=== PATIENT | female | born 1985 | race Hispanic/Latino ===

== ENCOUNTER 2022-04-17 20:25 | Inpatient (IN) | payer MEDICAID, OTHER ==
[2022-04-17 22:01] VITALS: BMI 28.2
[2022-04-17] MEDS ORDERED: Ondansetron PF 4 MG/2 ML Vial IVP PRN (22:06)
[2022-04-17] MEDS ORDERED: Promethazine HCl 25 MG/ML VIAL IM PRN (22:06)
[2022-04-17] MEDS ORDERED: hydrALAZINE 20 MG/ML VIAL SLOW IVP PRN (22:06)
[2022-04-17] MEDS ORDERED: Acetaminophen 500 MG TAB PO PRN (22:06)
[2022-04-17] MEDS ORDERED: Lactated Ringer's 1,000 ML IV SCH (22:30)
[2022-04-17] MEDS ORDERED: Bicitra 30 ML UDCUP PO PRN (22:47)
[2022-04-17] MEDS ORDERED: Famotidine/PF 20 mg/2ml Vial SLOW IVP PRN (22:47)
[2022-04-17] MEDS ORDERED: CEFAZOLIN 2 GM VIAL ONE (22:53)
[2022-04-17] MEDS ORDERED: CEFAZOLIN 2 GM in Sodium Chloride 0.9% 100 ML IVPB SCH (23:00)
[2022-04-17 23:04] LABS: Glucose 85 mg/dL (70-105)
[2022-04-17] MEDS ORDERED: PHENYLEPHRINE-NS 100 MCG/ML 10 ML SYRINGE ONE (23:36)
[2022-04-17] MEDS ORDERED: Oxytocin 10 UNITS/ML VIAL ONE (23:36)
[2022-04-17] MEDS ORDERED: Morphine PF 10 MG/10 ML VIAL ONE (23:36)
[2022-04-17 23:48] LABS: HBSAg Index 0.17 S/CO (0-0.99); Hep B Surf Ag Non-Reactive S/CO (NonReactive)
[2022-04-17 23:49] LABS: Syphilis Antibody Nonreactive (Nonreactive); Syphilis Antibody Index 0.05 S/CO (<1.00 Non-Reactive)
[2022-04-18] MEDS ORDERED: Dexamethasone 4 mg/ml Vial ONE (00:08)
[2022-04-18] MEDS ORDERED: Ondansetron PF 4 MG/2 ML Vial ONE (00:08)
[2022-04-18] MEDS ORDERED: diphenhydrAMINE 50 MG/ML VIAL IVP PRN (00:55)
[2022-04-18] MEDS ORDERED: Fentanyl 100 MCG/2 ML VIAL SLOW IVP PRN (00:55)
[2022-04-18] MEDS ORDERED: Meperidine HCl/PF 25 MG/ML VIAL SLOW IVP PRN (00:55)
[2022-04-18] MEDS ORDERED: Ondansetron PF 4 MG/2 ML Vial IVP PRN ×2 (00:55→06:31)
[2022-04-18] MEDS ORDERED: Naloxone HCl 0.4 mg/ml Vial IVP PRN ×2 (00:55)
[2022-04-18] MEDS ORDERED: Naloxone HCl 0.4 mg/ml Vial IV PRN (00:55)
[2022-04-18] MEDS ORDERED: Promethazine HCl 25 MG/ML VIAL IM PRN (00:55)
[2022-04-18] MEDS ORDERED: Ketorolac Tromethamine 30 MG/ML VIAL IVP PRN (00:55)
[2022-04-18] MEDS ORDERED: Moisturizing Cream (Eucerin) 113 GM JAR TOP PRN (00:55)
[2022-04-18] MEDS ORDERED: Promethazine HCl 25 MG SUPP PR PRN (00:55)
[2022-04-18] MEDS ORDERED: Communication Order-Pharmacy FS SCH (01:00)
[2022-04-18 01:47] LABS: White Blood Cell (WBC) Count 8.9 10x3/uL (3.5-10.5)
[2022-04-18 01:48] LABS: Hemoglobin 12.5 g/dL (12.0-15.5); Red Blood Cell (RBC) Count 3.95 10x6/uL (3.90-5.03)
[2022-04-18 01:49] LABS: Mean Corpuscular HGB CONC 35.5 g/dL (32.0-36.0); Mean Corpuscular Hemoglobin 31.6 pg (27.0-33.0); Mean Corpuscular Volume 89.1 fl (81.6-98.3)
[2022-04-18 01:50] LABS: Platelet Count 239 10x3/uL (150-450); RBC Distribution Width 13.4 % (11.5-14.5)
[2022-04-18 01:51] LABS: Mean Platelet Volume 10.3 fl (7.4-10.4)
[2022-04-18] MEDS ORDERED: Misoprostol 200 MCG TAB PR PRN (06:31)
[2022-04-18] MEDS ORDERED: hydrALAZINE 20 MG/ML VIAL SLOW IVP PRN (06:31)
[2022-04-18] MEDS ORDERED: NS w/ Oxytocin 30 units 500 ML IV SCH (06:31)
[2022-04-18] MEDS ORDERED: Boostrix 0.5 ML (Tdap) VIAL (>/=7 yrs of age) IM ONE (06:31)
[2022-04-18] MEDS ORDERED: diphenhydrAMINE 25 MG CAP PO PRN (06:31)
[2022-04-18] MEDS ORDERED: Bisacodyl 10 MG SUPP PR PRN (06:31)
[2022-04-18] MEDS ORDERED: Methylergonovine 0.2 MG/ML VIAL IM PRN (06:31)
[2022-04-18] MEDS ORDERED: Simethicone Chewable 80 MG TAB PO PRN (06:31)
[2022-04-18] MEDS ORDERED: Lanolin Ointment 7 GM TUBE TOP PRN (06:31)
[2022-04-18 07:14] LABS: SARS-CoV-2 NAA Rapid Test Not Detected (NotDetected)
[2022-04-18] MEDS: Docusate 100 MG CAP PO SCH ×2 (10:24→21:29)
[2022-04-18] MEDS: Prenatal Vitamin 1 TAB PO SCH (10:24)
[2022-04-18] MEDS: Ferrous Sulfate 325 MG TAB PO SCH ×2 (10:24→21:29)
[2022-04-18] MEDS ORDERED: HYDROcodone/Acetaminophen 5/325 mg Tablet PO PRN ×2 (13:00)
[2022-04-19 05:08] LABS: Mean Corpuscular HGB CONC 34.4 g/dL (32.0-36.0); Mean Corpuscular Hemoglobin 31.2 pg (27.0-33.0); Mean Corpuscular Volume 90.7 fl (81.6-98.3); Mean Platelet Volume 10.2 fl (7.4-10.4); Platelet Count 182 10x3/uL (150-450); RBC Distribution Width 13.7 % (11.5-14.5); Red Blood Cell (RBC) Count 3.53 10x6/uL (3.90-5.03); White Blood Cell (WBC) Count 11.4 10x3/uL (3.5-10.5)
[2022-04-19] MEDS: Ibuprofen 800 MG TAB PO SCH ×2 (06:23→14:59)
[2022-04-19] MEDS: Docusate 100 MG CAP PO SCH (10:14)
[2022-04-19] MEDS: Prenatal Vitamin 1 TAB PO SCH (10:15)
[2022-04-19] MEDS: Ferrous Sulfate 325 MG TAB PO SCH (10:18)
[2022-04-19 11:25] VITALS: BP 88/54; TEMP 98.4
== END 2022-04-19 15:10 | disposition home or self-care (01) | DRG 788 ==
LOC: CSHLD/OP 20:25 → CSHLD 22:14 → CSHPED 04-18 10:00
PROVIDERS: ADMIT Emergency Medicine; ATTEND Emergency Medicine
PROC: 10D00Z1 Extraction of Products of Conception, Low, Open Approach (ICD-10-PCS; principal; 2022-04-18)
DX: O76 Abnormality in fetal heart rate and rhythm complicating labor and delivery (principal); O24.425 Gestational diabetes mellitus in childbirth, controlled by oral hypoglycemic drugs; Z79.84 Long term (current) use of oral hypoglycemic drugs; Z3A.39 39 weeks gestation of pregnancy; Z37.0 Single live birth; Z20.822 Contact with and (suspected) exposure to COVID-19; O99.824 Streptococcus B carrier state complicating childbirth; O34.211 Maternal care for low transverse scar from previous cesarean delivery
CPT/HCPCS: 36415; 51702; 82947; 85027; 86780; 86850; 86900; 86901; 87340; 99285; J1100; J1885; J2274; J2405; J2550; J2590; U0002